=== PATIENT | male | born 1965 | race Hispanic/Latino ===

== ENCOUNTER 2019-03-08 09:16 | Emergency (ER) | payer SELFPAY ==
--- NOTE | 2019-03-08 10:09 | Emergency Department Report ---
ED Animal Bite HPI - General Chief Complaint: Animal Bite Stated Complaint: CAT BITE/RT WRIST Source: patient Mode of arrival: Ambulatory Limitations: No Limitations - History of Present Illness Initial Comments: Patient is a 53-year-old male that presents emergency room with complaints of a cat scratch to his right anterior wrist. Patient states he was scratched 2 weeks ago. Patient states aside is worsening. Patient states he developed a boil and he opened a boil himself. Patient complains of redness around the site as well as streaking up the right arm. Patient states he decided to come to the hospital today because he started having swelling of the right forearm, dizziness, nausea and vomiting, weakness and feeling feverish. MD Complaint: animal-related injury (scratch on the right anterior wrist) -: Gradual Right: Forearm Animal: cat Animal Control Notified: No Description: unknown animal Mechanism: scratch Pain Description: burning Severity scale (0 -10): 7 Context: unprovoked Associated Symptoms: erythema, discharge from wound, fever, chills, diaphoresis Treatments Prior to Arrival: other (patient I &D the wound with a nail clipper at home) - Related Data Patient Tetanus UTD: No Allergies Allergy/AdvReac Type Severity Reaction Status Date / Time No Known Allergies Allergy Unverified 03/08/19 09:27 ED Review of Systems ROS: Stated complaint: CAT BITE/RT WRIST Other details as noted in HPI Constitutional: chills, diaphoresis, fever Eyes: denies: eye pain, eye discharge, vision change ENT: denies: ear pain, throat pain Respiratory: denies: cough, shortness of breath, wheezing Cardiovascular: denies: chest pain, palpitations Endocrine: no symptoms reported Gastrointestinal: nausea, vomiting. denies: abdominal pain, diarrhea Genitourinary: denies: urgency, dysuria Musculoskeletal: denies: back pain, joint swelling, arthralgia Skin: lesions. denies: rash Neurological: vertigo. denies: headache, weakness, paresthesias Psychiatric: denies: anxiety, depression Hematological/Lymphatic: denies: easy bleeding, easy bruising ED Past Medical Hx - Past Medical History Previous Medical History?: Yes Hx Hypertension: Yes Additional medical history: cardiac stents - Surgical History Past Surgical History?: No Hx Appendectomy: Yes Additional Surgical History: Ortho surgeries - Social History Smoking Status: Current Every Day Smoker Substance Use Type: None ED Physical Exam - General Limitations: No Limitations General appearance: alert, in no apparent distress - Head Head exam: Present: atraumatic, normocephalic - Eye Eye exam: Present: normal appearance - ENT ENT exam: Present: mucous membranes moist - Neck Neck exam: Present: normal inspection - Respiratory Respiratory exam: Present: normal lung sounds bilaterally. Absent: respiratory distress, wheezes - Cardiovascular Cardiovascular Exam: Present: regular rate, normal rhythm. Absent: systolic murmur, diastolic murmur, rubs, gallop - GI/Abdominal GI/Abdominal exam: Present: soft, normal bowel sounds. Absent: distended, tenderness - Rectal Rectal exam: Present: deferred - Extremities Exam Extremities exam: Present: normal inspection - Back Exam Back exam: Present: normal inspection - Neurological Exam Neurological exam: Present: alert, oriented X3 - Psychiatric Psychiatric exam: Present: normal affect, normal mood - Skin Skin exam: Present: warm, dry, erythema, other (open area noted on the right anterior wrist with redness around the open area. Swelling noted. Red streaking noted up the right arm). Absent: rash ED Course Vital Signs 03/08/19 03/08/19 09:27 10:37 Temperature 97.8 F Pulse Rate 66 Respiratory 18 16 Rate Blood Pressure 130/95 O2 Sat by Pulse 97 Oximetry - Reevaluation(s) Reevaluation #1: I discussed all results with patient. I discussed plan of care outpatient. I discussed admission with patient. Patient agrees with plan of care and admission. Patient will be admitted to the hospitalist service. 03/08/19 11:43 - Consultations Consultation #1: Infectious disease paged 03/08/19 11:02 discussed This case with YANDEL Parmar. ID recommends admission and IV antibiotics. 03/08/19 11:15 Consultation #2: Hospitalist consult for admission. Hospitalist to admit patient. 03/08/19 11:26 Critical Care Time: Yes Critical care attestation.: If time is entered above; I have spent that time in minutes in the direct care of this critically ill patient, excluding procedure time. Critical Care Time: 35 minutes ED Disposition Clinical Impression: Cat scratch fever, Cellulitis of right wrist, Dizziness Fever Qualifiers: Fever type: unspecified Qualified Code(s): R50.9 - Fever, unspecified Nausea & vomiting Qualifiers: Vomiting type: unspecified Vomiting Intractability: non-intractable Qualified Code(s): R11.2 - Nausea with vomiting, unspecified Disposition: DC-09 OP ADMIT IP TO THIS HOSP Is pt being admited?: Yes Does the pt Need Aspirin: No Condition: Critical Time of Disposition: 11:26
[2019-03-08] MEDS ORDERED: BOOSTRIX IM ONE (10:12)
[2019-03-08 10:35] LABS: Basophils % (Auto) 0.4 % (0.0-1.8); Eosinophils # (Auto) 0.1 K/mm3 (0.0-0.4); Eosinophils % (Auto) 1.2 % (0.0-4.3); Hematocrit 44.1 % (35.5-45.6); Hemoglobin 14.8 gm/dl (11.8-15.2); Mean Corpuscular HGB Conc 34 % (32-34); Mean Corpuscular Volume 86 fl (84-94); Monocytes # (Auto) 0.8 K/mm3 (0.0-0.8); Monocytes % (Auto) 7.9 % (0.0-7.3); Platelet Count 178 K/mm3 (140-440); Red Blood Count 5.12 M/mm3 (3.65-5.03); Red Cell Distribution Width 14.1 % (13.2-15.2)
[2019-03-08 10:51] LABS: Alanine Aminotransferase 14 units/L (7-56); Albumin 4.2 g/dL (3.9-5); BUN/Creatinine Ratio 21; Blood Urea Nitrogen 19 mg/dL (9-20); Calcium 9.6 mg/dL (8.4-10.2); Hemolysis Index 4
--- NOTE | 2019-03-08 11:57 | History and Physical Report ---
Medications and Allergies Allergies Allergy/AdvReac Type Severity Reaction Status Date / Time No Known Allergies Allergy Unverified 03/08/19 09:27 Active Meds: Active Medications Doxycycline Hyclate 100 mg/ (Sodium Chloride) 250 mls @ 250 mls/hr IV ONCE ONE; Protocol Stop: 03/08/19 13:22 Last Admin: 03/08/19 11:55 Dose: 250 mls/hr Documented by: Exam - Constitutional Vitals: Temp Pulse Resp BP Pulse Ox 97.8 F 66 16 130/95 97 03/08/19 09:27 03/08/19 09:27 03/08/19 10:37 03/08/19 09:27 03/08/19 09:27 Results - Labs CBC & Chem 7: 03/08/19 10:15 03/08/19 10:15 Labs: Abnormal lab results 03/08/19 03/08/19 Range/Units 10:15 10:15 RBC 5.12 H (3.65-5.03) M/mm3 Lymph % (Auto) 10.0 L (13.4-35.0) % [place] % (Auto) 7.9 H (0.0-7.3) % Lymph # 1.0 L (1.2-5.4) K/mm3 Seg Neutrophils % 80.5 H (40.0-70.0) % Seg Neutrophils # 8.4 H (1.8-7.7) K/mm3 Glucose 114 H (75-100) mg/dL
[2019-03-08] MEDS ORDERED: DOXYCYCLINE HYCLATE 100 MG in NACL 0.9% 250ML 250 ML IV ONE (12:23)
[2019-03-08] MEDS ORDERED: AUGMENTIN 875 MG PO ONE (13:21)
[2019-03-08] MEDS ORDERED: ZYVOX 600MG/300ML 600 MG/300 ML BAG IV SCH (14:00)
[2019-03-08 14:53] VITALS: BP 147/100
== END 2019-03-08 15:57 | disposition admitted as inpatient to this hospital (09) ==
LOC: ED 09:16
DX: A28.1 Cat-scratch disease (principal); L03.113 Cellulitis of right upper limb; R50.9 Fever, unspecified; R42 Dizziness and giddiness; R11.2 Nausea with vomiting, unspecified; I10 Essential (primary) hypertension; F17.200 Nicotine dependence, unspecified, uncomplicated
CPT/HCPCS: 36415; 80053; 85025; 87040; 90715; J2020; J7050; 90471; 96365; 96366; 96367